=== PATIENT | female | born 1940 | race Two or more races ===

== ENCOUNTER → 2017-12-11 | Outpatient (CLI) | payer OTHER, MEDICAID | LOC: FIMAGING 14:25 | PROVIDERS: ATTEND Family Medicine | DX: R92.8 Other abnormal and inconclusive findings on diagnostic imaging of breast (principal) ==

== ENCOUNTER → 2019-01-14 | Outpatient (CLI) | payer OTHER, MEDICAID | LOC: FIMAGING 14:24 ==